=== PATIENT | male | born 1990 | race American Indian/Alaskan Native ===

== ENCOUNTER 2021-04-25 14:12 | Emergency (ER) | payer SELFPAY ==
[2021-04-25] MEDS ORDERED: SODIUM CHLORIDE 0.9% 500 ML 500 ML IV ONE (15:06)
[2021-04-25] MEDS ORDERED: ONDANSETRON 4 MG/2 ML INJ IV ONE (15:07)
[2021-04-25] MEDS ORDERED: KETOROLAC 30 MG/1 ML INJ IV ONE (15:07)
[2021-04-25] MEDS ORDERED: DICYCLOMINE 20 MG/2 ML INJ IM ONE (15:08)
[2021-04-25] MEDS ORDERED: dexAMETHasone 4 MG/ML VIAL IV ONE (15:08)
--- NOTE | 2021-04-25 15:40 | XRay Report ---
CHEST 2 VIEWS INDICATION / CLINICAL INFORMATION: fever, sob. COMPARISON: None available. FINDINGS: SUPPORT DEVICES: None. HEART / MEDIASTINUM: No significant abnormality. LUNGS / PLEURA: No significant pulmonary or pleural abnormality. No pneumothorax. ADDITIONAL FINDINGS: No significant additional findings. IMPRESSION: 1. No acute findings. Signer Name: Chauncey Collado MD Signed: 04/25/2021 3:36 PM Workstation Name: [id number] [id number]
[2021-04-25 16:27] LABS: Mean Corpuscular HGB Conc 33 % (32-34); Mean Corpuscular Volume 95 fl (84-94); Platelet Count 201 K/mm3 (140-440); Red Blood Count 4.87 M/mm3 (3.65-5.03)
[2021-04-25 16:48] LABS: Alanine Aminotransferase 16 units/L (7-56); Albumin 4.3 g/dL (3.9-5); BUN/Creatinine Ratio 12; Blood Urea Nitrogen 13 mg/dL (9-20); Calcium 9.8 mg/dL (8.4-10.2); Hemolysis Index 9
--- NOTE | 2021-04-25 17:29 | Cat Scan Report ---
CT ABDOMEN AND PELVIS WITHOUT CONTRAST INDICATION / CLINICAL INFORMATION: abdominal pain. TECHNIQUE: Axial CT images were obtained through the abdomen and pelvis without IV contrast. All CT scans at this location are performed using CT dose reduction for ALARA by means of automated exposure control. COMPARISON: None available. FINDINGS: LOWER CHEST: No significant abnormality. LIVER: No significant abnormality. GALLBLADDER: No significant abnormality. BILE DUCTS: No significant abnormality. PANCREAS: No significant abnormality. SPLEEN: No significant abnormality. ADRENALS: No significant abnormality. RIGHT KIDNEY / URETER: No significant abnormality. LEFT KIDNEY / URETER: No significant abnormality. STOMACH / SMALL BOWEL: No significant abnormality. COLON: No significant abnormality. APPENDIX: No significant abnormality. PERITONEUM: No free fluid. No free air. No fluid collection. LYMPH NODES: No significant adenopathy. VASCULAR STRUCTURES: No significant abnormality. URINARY BLADDER: No significant abnormality. REPRODUCTIVE ORGANS: No significant abnormality. ADDITIONAL FINDINGS: None. SKELETAL SYSTEM: No significant abnormality. IMPRESSION: Negative for obstruction or localized inflammation. Signer Name: Marco A Abraham MD Signed: 04/25/2021 5:25 PM Workstation Name: [id number]
--- NOTE | 2021-04-25 17:54 | Emergency Department Report ---
ED N/V/D HPI - General Chief complaint: Nausea/Vomiting/Diarrhea Stated complaint: N/V Time Seen by Provider: 04/25/21 15:05 Source: EMS Mode of arrival: Stretcher Limitations: No Limitations - History of Present Illness Initial comments: 31-year-old black male with no past medical history presents to the emergency department with 2-day history of worsening nausea, vomiting, body aches, shortness of breath on exertion, and fever. He states that his T-max at home was 102. He denies any sick contacts. He states the pain is 10 out of 10 and is similar to the pain that he had when he was diagnosed with Covid. complaint: nausea, vomiting, abdominal pain -: Gradual, days(s) (2) Associated Abdominal Pain: Yes Location: diffuse Radiation: none Severity: severe Pain Scale: 10 Quality: cramping, aching Consistency: constant - Related Data Previous Rx's Medication Instructions Recorded Last Taken Type Dicyclomine [Bentyl] 20 mg PO QID PRN #21 tablet 04/25/21 Unknown Rx Ondansetron [Zofran Odt] 4 mg PO Q8HR #12 tab.rapdis 04/25/21 Unknown Rx Allergies Allergy/AdvReac Type Severity Reaction Status Date / Time No Known Allergies Allergy Verified 04/25/21 14:18 ED Review of Systems ROS: Stated complaint: N/V Other details as noted in HPI Comment: All other systems reviewed and negative Constitutional: fever, weakness. denies: chills, diaphoresis, malaise Eyes: denies: eye pain, eye discharge ENT: denies: ear pain, throat pain, dental pain, hearing loss, congestion Respiratory: SOB with exertion. denies: cough, orthopnea, shortness of breath, SOB at rest Cardiovascular: denies: chest pain, palpitations, dyspnea on exertion, ortho pnea, edema, syncope, paroxysmal nocturnal dyspnea Endocrine: no symptoms reported Gastrointestinal: abdominal pain, nausea, vomiting. denies: diarrhea, constipation, hematemesis, melena, hematochezia Genitourinary: denies: urgency, dysuria, frequency, hematuria, discharge, testicular pain Musculoskeletal: denies: back pain, joint swelling, arthralgia, myalgia Skin: denies: lesions, change in color, change in hair/nails Neurological: denies: headache, weakness, numbness, paresthesias Psychiatric: denies: anxiety, depression Hematological/Lymphatic: denies: easy bleeding ED Past Medical Hx - Past Medical History Previous Medical History?: No - Medications Home Medications: Home Medications Medication Instructions Recorded Confirmed Last Taken Type Dicyclomine [Bentyl] 20 mg PO QID PRN #21 tablet 04/25/21 Unknown Rx Ondansetron [Zofran Odt] 4 mg PO Q8HR #12 tab.rapdis 04/25/21 Unknown Rx ED Physical Exam - General Limitations: No Limitations General appearance: alert, in no apparent distress - Head Head exam: Present: atraumatic, normocephalic - Eye Eye exam: Present: normal appearance. Absent: conjunctival injection - Neck Neck exam: Present: normal inspection. Absent: tenderness, lymphadenopathy - Respiratory Respiratory exam: Present: normal lung sounds bilaterally, respiratory distress, chest wall tenderness. Absent: wheezes, rales, stridor, accessory muscle use, decreased breath sounds - Cardiovascular Cardiovascular Exam: Present: regular rate, normal heart sounds - GI/Abdominal GI/Abdominal exam: Present: soft, tenderness (Generalized), normal bowel sounds. Absent: distended, guarding, rebound, rigid - Extremities Exam Extremities exam: Present: normal inspection, full ROM - Back Exam Back exam: Present: normal inspection. Absent: full ROM, tenderness, CVA tenderness (R), CVA tenderness (L), muscle spasm, paraspinal tenderness - Neurological Exam Neurological exam: Present: alert, oriented X3 - Psychiatric Psychiatric exam: Present: normal affect, normal mood - Skin Skin exam: Present: warm, dry, intact, normal color ED Course Vital Signs 04/25/21 04/25/21 04/25/21 14:17 16:03 18:19 Temperature 98.4 F 99.5 F Pulse Rate 75 86 Respiratory 16 16 Rate Blood Pressure 114/80 117/74 [Right] O2 Sat by Pulse 99 Oximetry 04/25/21 18:29 Temperature Pulse Rate Respiratory 16 Rate Blood Pressure [Right] O2 Sat by Pulse Oximetry - Reevaluation(s) Reevaluation #1: 04/25/21 19:00 Nausea vomiting and abdominal cramping resolved. Patient states that he feels much better. ED Medical Decision Making - Lab Data Result diagrams: 04/25/21 15:31 02/21/22 15:31 - Radiology Data Radiology results: report reviewed, image reviewed Chest x-ray IMPRESSION: 1. No acute findings. CT abdomen pelvis without contrast IMPRESSION: Negative for obstruction or localized inflammation. - Medical Decision Making 31-year-old black male with no past medical history presents to the emergency department with 2-day history of worsening nausea, vomiting, body aches, shortness of breath on exertion, and fever. He states that his T-max at home was 102. He denies any sick contacts. He states the pain is 10 out of 10 and is similar to the pain that he had when he was diagnosed with Covid. Patient noted to have WBC count of 31 on CBC. Chest x-ray and CT of the abdomen and pelvis without any acute findings. Symptoms were improved with medications. Patient will be treated for gastroenteritis with Zofran and Bentyl at home to take as needed. He was advised to take medications as prescribed, drink plenty of noncaffeinated fluids, get plenty of rest, and follow-up with primary care provider if no improvement or worsening symptoms. He was advised to follow-up in the emergency department if worsening fever, abdominal pain, or any concerning symptoms. He verbalized understanding of and agreement with plan of care. Critical care attestation.: If time is entered above; I have spent that time in minutes in the direct care of this critically ill patient, excluding procedure time. ED Disposition Clinical Impression: Nausea & vomiting Disposition: 01 HOME / SELF CARE / HOMELESS Is pt being admited?: No Does the pt Need Aspirin: No Condition: Stable Instructions: Nausea and Vomiting, Adult, [id number] Additional Instructions: Take medications as prescribed. Follow-up with primary care provider for further evaluation. Return to the emergency department for worsening symptoms. Prescriptions: Dicyclomine [Bentyl] 20 mg PO QID PRN #21 tablet PRN Reason: Pain, Moderate (4-6) Ondansetron [Zofran Odt] 4 mg PO Q8HR #12 tab.rapdis Referrals: OLIVER KANG MD [Referring] - 3-5 Days RAYMOND BANG MD [Staff Physician] - 3-5 Days Time of Disposition: 17:55
[2021-04-25] MEDS ORDERED: METOCLOPRAMIDE 10 MG/2 ML INJ IV ONE (18:02)
[2021-04-25] MEDS ORDERED: MORPHINE 4 MG/1 ML INJ IV ONE (18:02)
[2021-04-25] MEDS ORDERED: diphenhydrAMINE 50 MG/ML VIAL IV ONE (18:02)
[2021-04-25 18:21] VITALS: BP 117/74
== END 2021-04-25 18:39 | disposition home or self-care (01) ==
LOC: ED 14:12
DX: R11.2 Nausea with vomiting, unspecified (principal)
CPT/HCPCS: 36415; 71046; 74176; 80053; 85027; 96372; 96374; 96375; 99284; J0500; J1100; J1200; J1885; J2270; J2405; J2765; J7040